=== PATIENT | male | born 1970 | race Hispanic/Latino ===

== ENCOUNTER → 2018-05-06 | Day surgery (SDC) | payer OTHER ==
[~2018-05-06] MED LIST: FENTANYL CITRATE/PF 100MCG/2 ML INJ ONE; HYOSCYAMINE SULFATE 0.5 MG/ML AMP ONE; MIDAZOLAM HCL 5MG/ML 2ML VIAL ONE; PROPOFOL IV EMULSION 10 MG/ML 50 ML VIAL ONE
--- NOTE | 2018-05-06 16:19 | Operative Report ---
DATE OF PROCEDURE: May 06, 2018 REFERRING PHYSICIAN: Dr. Keri Blanco PROCEDURE PERFORMED: Colonoscopy and polypectomy with biopsies. INDICATIONS FOR COLONOSCOPY: Colorectal cancer screening. MEDICATION: Patient was done under MAC. Please see anesthesiologist's note. PROCEDURE: With the patient in the left lateral decubitus position, the flexible fiberoptic Olympus colonoscope was inserted into the rectum with ease advanced all the way to the cecum. Mild melanosis coli was noted pretty much throughout of the colon. One polyp was hot biopsied from the cecum and polypectomy site was hemoclipped. There was a cluster of aphthous-like ulcers were noted in the cecum. Biopsies were obtained. The ascending colon other than for melanosis coli appeared to be within normal limits. An approximately 5-mm solitary ulcer was noted in the proximal transverse colon that was biopsied. The rest of the transverse, descending, sigmoid, and rectum was grossly within normal limits other than for mild melanosis coli. The scope was then retroflexed into the distal rectum and small internal hemorrhoids were noted, none of which was actively bleeding. The scope was then straightened out. It was subsequently withdrawn. Patient tolerated the procedure well. IMPRESSION 1. Melanosis coli, mild. 2. Cecal polyp, hot biopsied and polypectomy site hemoclipped. 3. Cluster of aphthous-like ulcers, cecum, biopsied. 4. Approximately 5 mm solitary ulcer in proximal transverse colon, biopsied. 5. Internal hemorrhoids, none actively bleeding. PLAN: Follow up histology. Initiate high-fiber and low-fat diet. Initiate high-fiber supplement. Start VSL #3 one p.o. daily. Check TSH. Patient might benefit from a followup colonoscopy in 3-5 years. Job#: [id number] RI cc:KERI BLANCO MD
== END | disposition home or self-care (01) ==
LOC: OR 10:54
PROVIDERS: ATTEND Internal Medicine Gastroenterology
DX: Z12.11 Encounter for screening for malignant neoplasm of colon (principal); K59.00 Constipation, unspecified; R03.0 Elevated blood-pressure reading, without diagnosis of hypertension; K63.89 Other specified diseases of intestine; K63.5 Polyp of colon; K64.8 Other hemorrhoids; K63.3 Ulcer of intestine
CPT/HCPCS: 36415; 45380; 45384; 84443; 93005; J1980; 45378; J2250